=== PATIENT | male | born 2000 | race Asian ===

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

== ENCOUNTER → 2020-02-08 16:33 | Outpatient (CLI) | payer OTHER, SELFPAY ==
[2020-02-10 16:50] LABS: V-Zoster IgG (Immunity) 218 index (Immune >165)
== END ==
DX: Z71.89 Other specified counseling (principal)
CPT/HCPCS: 36415; 86787

== ENCOUNTER 2021-10-31 01:30 | Emergency (ER) | payer OTHER, SELFPAY ==
[2021-10-31 01:31] VITALS: BP 129/116; PULSE 82; RESP 16; TEMP 36; O2SAT 100; BMI 22.1
[2021-10-31 01:38] VITALS: BP 150/128; PULSE 73; O2SAT 85
--- NOTE | 2021-10-31 01:39 | EDS_ITS ---
HPI History of Present Illness Chief Complaint: ETOH Intox Informant: patient and friend Onset/Context/Timing Onset: Today Narrative Narrative: Limited history from this intoxicated patient who presents with a friend, he is a [employer] student, he was drinking heavily tonight and subsequently started vomiting, he was taken to the wellness center at the school where his oxygen saturations went as low as the 70s on room air and so he was sent here for further evaluation. Patient is arousable and able to open his eyes, when asked if he is short of breath he shrugs. When asked if he is nauseated he shakes his head no. PFSH PFSH Medical History no medical history no medical history Home Medications NK 01/16/19 [History Last Taken Unknown] Allergy/AdvReac Type Severity Reaction Status Date / Time No Known Allergies Allergy Verified 10/31/21 01:31 Social History Smoking Status: Never smoker ROS ROS ED Review of Systems ROS Unobtainable: due to mental status Gastrointestinal Gastrointestinal: Reports nausea and vomiting EXAM Physical Exam Const Vital Signs: 10/31/21 01:31 10/31/21 01:38 10/31/21 05:02 Temperature 96.8 F L Temperature Source Temporal Pulse Rate 82 73 89 Respiratory Rate 16 18 Blood Pressure 129/116 H 150/128 H 100/51 L Blood Pressure Mean 120 135 67 Pulse Ox 100 85 98 Oxygen Delivery Method Room Air Room Air Room Air Positive well nourished and well developed Constitutional Narrative: Lethargic, arousable. Emesis on his shirt. Airway intact, breathing slow and comfortably without audible secretions. General Appearance ED: well developed and NAD HEENT Reports moist mucous membranes normocephalic and atraumatic Eyes PERRL and EOMs intact bilaterally Neck full ROM and supple Resp normal respiratory effort and clear to auscultation bilaterally Cardio regular rate, regular rhythm and no murmurs GI non-tender and non-distended Auscultation: normoactive bowel sounds Palpation: soft Back/Spine no CVA tenderness General Back: other FROM Extremity normal to inspection General Extremety ED: Negative for edema, pulses abnormal or tenderness General Extremity: Negative for edema or pulses abnormal Neuro CN's II-XII intact bilaterally and no sensory deficits noted Neuro Narrative: Patient very lethargic but able to be aroused Madhuri Coma Scale: document GCS findings To Voice Obeys Commands None 10 Sensorium / Orientation: awake and alert Motor Exam: strength 5/5 throughout Skin no rashes or lesions noted and no wounds MDM MDM MDM Narrative Medical decision making narrative: Patient's chest x-ray unremarkable. Clinically his lungs are clear and he is breathing easily. Differential includes aspiration pneumonitis that has not shown up on x-ray yet, and more likely, hypopnea due to respiratory suppression from alcohol intoxication causing hypoxemia. He was observed on a nasal cannula for the duration of the night order selector to allow him to metabolize the alcohol. At the end of the night order selector, the patient is doing much better. He is alert, ambulatory, he has no hypoxemia and is at 98-100% on room air. He denies any dyspnea. I am comfortable allowing him to go home. Lab Data Attestation: I reviewed the patient's lab results. Labs: Laboratory Results - last 24 hr 10/31/21 01:30 Ethyl Alcohol 185.0 Radiography Diagnostic Testing: Clinical Impression(s) from Imaging Studies Chest X-Ray 10/31/21 01:39 IMPRESSION: Negative x-ray examination of the chest. Electronically Signed: Lc Deluca MD at 1:58 EST Tel , Service support , Discharge Plan Triage Chief Complaint: ETOH Intox ED Provider: Mp Narvaez Dx/Rx/DC Orders Clinical Impression: Alcohol intoxication Instructions: ED Alcohol Intoxication Prescriptions: No Action NK RF: 0 Primary Care Provider: Care Physician,No Primary Referrals: [facility] [GROUP OF PHYSICIANS] - As Needed Disposition Disposition: Home, Self Care
--- NOTE | 2021-10-31 01:39 | RAD_ITS ---
STUDY: X-RAY CHEST REASON FOR EXAM: Male, 21 years old. vomiting, hypoxic TECHNIQUE: AP portable upright COMPARISON: None. FINDINGS: The lungs are clear and expanded. There is no demonstrated pleural abnormality. Normal size heart. Normal mediastinum and duglas. Normal visualized pulmonary arteries. Normal visualized aortic arch and descending thoracic aorta. Normal visualized thoracic spine. Normal visualized ribs, clavicles, and shoulders. There is no demonstrated abnormality of the visualized soft tissue structures of the upper abdomen. RAD/Chest 1 View (Portable) IMPRESSION: Negative x-ray examination of the chest. Electronically Signed: Lc Deluca MD at 1:58 EST Tel , Service support ,
[2021-10-31] MEDS: 0.9% Normal Saline 1,000 ML 999 ML IV (02:02)
[2021-10-31] MEDS: Ondansetron 4 MG/2 ML Vial IV (02:02)
[2021-10-31 05:02] VITALS: BP 100/51; PULSE 89; RESP 18; O2SAT 98
== END 2021-10-31 07:02 | disposition home or self-care (01) ==
PROVIDERS: Emergency Provider Emergency Medicine
DX: F10.129 Alcohol abuse with intoxication, unspecified (principal)
CPT/HCPCS: 71045; 82077; 96374; 99284; J7030; A4216; J2405

== ENCOUNTER → 2021-11-07 16:43 | Outpatient (CLI) | payer OTHER, SELFPAY | PROVIDERS: Visit Provider Family Medicine | DX: Z23 Encounter for immunization (principal) ==